=== PATIENT | male | born 1970 | race African-American/Black ===

== ENCOUNTER 2017-04-23 16:13 | Emergency (ER) | payer OTHER ==
[~2017-04-23 16:13] MED LIST: COUMADIN5 MG PO; LOVENOX80 MG/0.8 SQ; XARELTO15 MG PO; XARELTO20 MG PO
== END 2017-04-23 20:13 | disposition home or self-care (01) ==
LOC: FER 16:13
DX: K04.01 Reversible pulpitis (principal); Z88.0 Allergy status to penicillin
CPT/HCPCS: 99283

== ENCOUNTER 2021-11-29 13:04 | Emergency (ER) | payer OTHER ==
[~2021-11-29 13:04] MED LIST changes: +CEFDINIR300 MG PO; +COUMADIN7.5 MG PO; +ELIQUIS5 MG PO; +MUCINEX 600MG600 MG PO; +ZITHROMAX TRI-500 MG PO
[2021-11-29] MEDS ORDERED: FLEXERIL5 MG PO (15:34)
[2021-11-29] MEDS ORDERED: PREDNISONE50 MG PO (15:34)
== END 2021-11-29 15:53 | disposition home or self-care (01) ==
LOC: FER 13:04
DX: G89.29 Other chronic pain (principal); M54.50 Low back pain, unspecified; F17.210 Nicotine dependence, cigarettes, uncomplicated; Z88.0 Allergy status to penicillin; Z28.310 Unvaccinated for COVID-19
CPT/HCPCS: 72110; 96372; J1885; J2930

== ENCOUNTER 2022-03-05 14:35 | Emergency (ER) | payer OTHER ==
[~2022-03-05 14:35] MED LIST changes: +FLEXERIL5 MG PO; +PREDNISONE50 MG PO
== END 2022-03-05 16:54 | disposition home or self-care (01) ==
LOC: FER 14:35
DX: M79.672 Pain in left foot (principal); Z28.310 Unvaccinated for COVID-19; Z88.0 Allergy status to penicillin; W23.0XXA Caught, crushed, jammed, or pinched between moving objects, initial encounter; Y92.89 Other specified places as the place of occurrence of the external cause; Y99.0 Civilian activity done for income or pay
CPT/HCPCS: 73630